=== PATIENT | male | born 1935 | race Caucasian/White ===

== ENCOUNTER 2019-11-15 20:44 | Inpatient (IN) | payer OTHER ==
[~2019-11-15] VITALS: Ht 188 cm; Wt 58.1 kg
[2019-11-15 22:41] LABS: Basophils # (auto) 0 10 ^3/uL (0-0.2); Basophils % (auto) 0.3 % (0.0-2.0); Eosinophils # (auto) 0.2 10 ^3/uL (0-0.8); Eosinophils % (auto) 1.5 % (0.0-7.0); Hematocrit 42.9 % (41.0-53.0); Hemoglobin 14.1 g/dL (13.5-17.5); Lymphocytes # (auto) 1.9 10 ^3/uL (0.4-5.4); Mean Corpuscular Hemoglobin 27.4 pg (28.0-32.0); Mean Corpuscular Hgb Conc. 32.7 g/dL (32.0-36.0); Mean Corpuscular Volume 83.7 fL (80.0-100.0); Monocytes # (auto) 0.5 10 ^3/uL (0-1.3); Monocytes % (auto) 4.7 % (0.0-12.0); Neutrophils # (auto) 8.1 10 ^3/uL (1.6-8.6); Neutrophils % (auto) 75.5 % (37.0-80.0); Platelet Count (auto) 313 10^3/uL (140-450); Red Blood Cells 5.13 10^6/uL (4.5-5.90); Red Cell Distribution Width 15.5 % (11.8-14.3); White Blood Cell 10.8 10^3/uL (4.4-10.8)
[2019-11-15 22:43] LABS: Alanine Aminotransferase 23 U/L (16-61); Albumin 3.4 g/dL (3.4-5.0); Anion Gap 6 (5-15); Aspartate Aminotransferase 18 U/L (15-37); Blood Urea Nitrogen 27 mg/dL (7-18); Carbon Dioxide 26 mmol/L (21-32); Chloride 103 mmol/L (98-107); Glucose 113 mg/dL (74-106); Magnesium 2.3 mg/dL (1.6-2.6); Potassium 3.7 mmol/L (3.5-5.1); Sodium 135 mmol/L (136-145)
[2019-11-15 22:48] LABS: Alkaline Phosphatase 109 U/L (45-117); BUN/Creatinine Ratio 18.4; Bilirubin, Total 0.3 mg/dL (0.2-1.0); GFR African American 58 mL/min; GFR Non-African American 48 mL/min
[2019-11-15 23:01] LABS: INR 0.97 (0.9-1.15); Partial Thromboplastin Time 29.1 sec (23.0-31.2)
[2019-11-16 02:30] LABS: Urine Bacteria FEW /hpf (None Seen); Urine Blood Negative /uL (Negative); Urine Hyaline Cast FEW /lpf (0 - 2); Urine Mucus FEW (None Seen); Urine Specific Gravity 1.021 (1.001-1.035); Urine WBC 122 /hpf (0 - 3); Urine WBC Clumps PRESENT /hpf (None Seen)
[2019-11-16] MEDS ORDERED: ONDANSETRON HCL 4 MG/2 ML VIAL IV ONE ×2 (02:30→08:45)
[2019-11-16] MEDS ORDERED: MORPHINE SULFATE 4 MG/ML SYR/VIAL IV ONE (02:30)
[2019-11-16 02:31] LABS: Amylase 56 U/L (25-115); Lipase 171 U/L (73-393)
[2019-11-16] MEDS ORDERED: cefTRIAXone 1GM/50ML D5W 50 ML IV ONE (07:00)
[2019-11-16] MEDS ORDERED: metroNIDAZOLE 500MG/100ML 100 ML IV ONE (07:00)
[2019-11-16] MEDS ORDERED: MORPHINE SULF INJ 2 MG/ML SYRINGE 1ML IV ONE (08:45)
[2019-11-16] MEDS: SODIUM CHLORIDE 0.9% 1,000 ML IV SCH ×2 (11:45→12:39)
[2019-11-16] MEDS ORDERED: GASTROGRAFIN 120 ML SOL ONE (12:43)
[2019-11-16 13:47] VITALS: BP 85/57
--- NOTE | 2019-11-16 15:42 | NUR ---
RECEIVED PT TO ROOM 218 A APPROX 1400. BP RUNS LOW PER REPORT FROM ER. SYSTOLIC 85. PT AWAKE ALERT ORIENTED X 4. RED CLIFF. SUPRAPUBIC CATHETER IN PLACE. COLOSTOMY IN PLACE. UNDERGOING SMALL BOWEL SERIES AT THIS TIME. CONTINUING TO MONITOR.
[2019-11-16 16:47] VITALS: BP 86/53
--- NOTE | 2019-11-16 18:09 | NUR ---
PT CONTINUES TO REFUSE NGT. PER DR LOZANO, PT INFORMED THAT WITHOUT THE NGT IT IS UNLIKELY THE OBSTRUCTION WILL RESOLVE ON ITS OWN AND THERE IS A GREATER POSSIBILITY OF COMPLICATIONS AND . PT VERBALIZED UNDERSTANDING, STATED, " I WILL NOT LET THEM PUT THAT TUBE DOWN MY NOSE".
[2019-11-16] MEDS: SENNA 8.6 MG TAB PO SCH (20:49)
[2019-11-16] MEDS: HEPARIN SODIUM (PORCINE) 5000 UNITS/ML 1ML VIAL SC SCH (20:50)
--- NOTE | 2019-11-16 22:52 | NUR ---
EXPLAINED TO PATIENT THE NEED FOR NGT TO HELP WITH HIS SMALL BOWEL OBSTRUCTION, PATIENT REFUSED NGT.
--- NOTE | 2019-11-16 23:30 | NUR ---
SPOKE TO PATIENT'S SON, KATERINE. UPDATED HIM THAT PATIENT REFUSED FOR THE NGT TO BE INSERTED MULTIPLE TIMES. KATERINE SPOKE WITH PATIENT TWICE TO CONVINCE HIM TO HAVE THE NGT INSERTED TONIGHT. PATIENT AGREED LONG HE CAN BE GIVEN PAIN MEDICINE PRIOR NGT INSERTION.
[2019-11-16] MEDS: MORPHINE SULF INJ 2 MG/ML SYRINGE 1ML IV PRN (23:41)
--- NOTE | 2019-11-16 23:58 | NUR ---
FR 12 TASH FOSS NGT INSERTED AND CONNECTED TO LOW SUCTION ORDERED. Addendum: 11/17/19 at 0001 by TRANG ORELLANA RN RN 12 NGT INSERTED TO RIGHT NARE.
[2019-11-17 00:13] VITALS: BP 95/46
[2019-11-17] MEDS: SODIUM CHLORIDE 0.9% 1,000 ML IV SCH ×3 (02:07→23:24)
[2019-11-17 05:40] VITALS: BP 114/58
--- NOTE | 2019-11-17 06:32 | NUR ---
NGT OUTPUT - 400, GREENISH COLOR
[2019-11-17 06:38] LABS: Basophils # (auto) 0 10 ^3/uL (0-0.2); Basophils % (auto) 0.3 % (0.0-2.0); Eosinophils # (auto) 0.1 10 ^3/uL (0-0.8); Eosinophils % (auto) 0.8 % (0.0-7.0); Hematocrit 38.9 % (41.0-53.0); Hemoglobin 12.8 g/dL (13.5-17.5); Lymphocytes # (auto) 2.2 10 ^3/uL (0.4-5.4); Lymphocytes % (auto) 21.6 % (10.0-50.0); Mean Corpuscular Hemoglobin 27.5 pg (28.0-32.0); Mean Corpuscular Hgb Conc. 32.9 g/dL (32.0-36.0); Mean Corpuscular Volume 83.7 fL (80.0-100.0); Monocytes # (auto) 0.8 10 ^3/uL (0-1.3); Monocytes % (auto) 7.5 % (0.0-12.0); Neutrophils # (auto) 7.1 10 ^3/uL (1.6-8.6); Neutrophils % (auto) 69.8 % (37.0-80.0); Nucleated Red Blood Cells % 0.1 %; Platelet Count (auto) 255 10^3/uL (140-450); Red Blood Cells 4.65 10^6/uL (4.5-5.90); Red Cell Distribution Width 15.1 % (11.8-14.3); White Blood Cell 10.2 10^3/uL (4.4-10.8)
[2019-11-17 06:39] LABS: BUN/Creatinine Ratio 22.4; Calcium 9.8 mg/dL (8.5-10.1); Potassium 4.5 mmol/L (3.5-5.1)
--- NOTE | 2019-11-17 07:30 | NUR ---
Opening Shift Note RECEIVED REPORT FORM NOC RN. Assumed care of patient, awake and alert. PATIENT ON OXYGEN AT 2 LPM VIA NASAL CANNULA WITH no S/S of distress/SOB or pain. BED IN LOWEST, LOCKED POSITION WITH SIDERAILS UP x2 AND CALL LIGHT WITHIN REACH. Instructed on POC and to call for assist PRN, will continue to monitor for changes Q1hr and PRN.
[2019-11-17 09:00] VITALS: BP 95/52
[2019-11-17] MEDS: SENNA 8.6 MG TAB PO SCH ×2 (10:26→21:05)
[2019-11-17] MEDS: HEPARIN SODIUM (PORCINE) 5000 UNITS/ML 1ML VIAL SC SCH ×2 (12:02→21:16)
[2019-11-17 13:00] VITALS: BP 96/58
[2019-11-17] MEDS ORDERED: METOCLOPRAMIDE HCL 5MG/ml INJ 2ml VIAL IV ONE (14:15)
[2019-11-17] MEDS: MORPHINE SULF INJ 2 MG/ML SYRINGE 1ML IV PRN (14:36)
[2019-11-17 16:51] VITALS: BP 107/61
--- NOTE | 2019-11-17 16:57 | NUR ---
NG TUBE CLAMPED PER DOCTOR'S ORDER. 200mL OUT, GREENISH COLORED FLUID.
--- NOTE | 2019-11-17 17:50 | NUR ---
UNABLE TO CONTACT ON-CALL SOCIALS SERVICES AT THIS TIME FOR HOSPICE INITIATION FOR PATIENT'S DISCHARGE.
[2019-11-17 22:00] VITALS: BP 116/59
[2019-11-18 05:00] VITALS: BP 133/65
--- NOTE | 2019-11-18 06:03 | NUR ---
PATIENT C/O NAUSEA AND ABDOMINAL PAIN, ATTACHED NGT TO LOW SUCTION AND PUT OUT 400 ML GREENISH COLOR FLUID IN 30 MIN. PATIENT FELT BETTER AFTER. EMPTIED 100ML LOOSE BROWN STOOL FROM COLOSTOMY.
[2019-11-18 07:08] LABS: Basophils # (auto) 0 10 ^3/uL (0-0.2); Basophils % (auto) 0.4 % (0.0-2.0); Eosinophils # (auto) 0.1 10 ^3/uL (0-0.8); Eosinophils % (auto) 0.7 % (0.0-7.0); Hematocrit 38.1 % (41.0-53.0); Hemoglobin 12.6 g/dL (13.5-17.5); Lymphocytes # (auto) 1.5 10 ^3/uL (0.4-5.4); Lymphocytes % (auto) 17.6 % (10.0-50.0); Mean Corpuscular Hemoglobin 27.6 pg (28.0-32.0); Mean Corpuscular Hgb Conc. 32.9 g/dL (32.0-36.0); Mean Corpuscular Volume 83.9 fL (80.0-100.0); Monocytes # (auto) 0.5 10 ^3/uL (0-1.3); Monocytes % (auto) 6.1 % (0.0-12.0); Neutrophils # (auto) 6.6 10 ^3/uL (1.6-8.6); Neutrophils % (auto) 75.2 % (37.0-80.0); Nucleated Red Blood Cells % 0.1 %; Platelet Count (auto) 254 10^3/uL (140-450); Red Blood Cells 4.54 10^6/uL (4.5-5.90); Red Cell Distribution Width 15.5 % (11.8-14.3); White Blood Cell 8.8 10^3/uL (4.4-10.8)
[2019-11-18 07:26] LABS: Calcium 9.8 mg/dL (8.5-10.1); Potassium 3.9 mmol/L (3.5-5.1)
[2019-11-18 09:19] VITALS: BP 111/58
[2019-11-18] MEDS: SENNA 8.6 MG TAB PO SCH (10:00)
[2019-11-18] MEDS: HEPARIN SODIUM (PORCINE) 5000 UNITS/ML 1ML VIAL SC SCH (10:00)
--- NOTE | 2019-11-18 10:40 | NUR ---
NG tube removal NGT removed per MD/COMMERCIAL REVIEW APPRAISER order following explanation and instruction to patient. Patient verbalized understanding prior to removal. Patient tolerated well.
--- NOTE | 2019-11-18 10:57 | NUR ---
Attempted PT eval. Pt states he uses a 4WW at home but does not need a PT evaluation because he is going home. I explained the purpose of PT eval to pt but he continued to refuse. RN aware.
[2019-11-18 13:00] VITALS: BP 117/65
[2019-11-18] MEDS: SODIUM CHLORIDE 0.9% 1,000 ML IV SCH (13:45)
--- NOTE | 2019-11-18 14:59 | NUR ---
Assessment Patient is an 84-year-old male who is confused. Assessment was completed with patient raj Narayanan. Per Oracio prior to admission patient was staying in a motel and was unable to care for himself. Per Oracio patient is unable to care for himself and will need placement. Advised Oracio there is a social service consult for hospice. Per Oracio doctor has not talk to him about different options. Informed Oracio I will inform bedside nurse in regards of the orders so doctor can explain hospice. Informed Oracio he has the right to participate in all discharge planning. Oracio verbalized understanding and agreed to discharge plan. Informed ALLISON Wong patient raj Narayanan was not informed about Hospice. Per ALLISON Wong she will contact MD. ALLISON Wong advised me MD spoke to Oracio. Placed follow up called to Oracio in regards of hospice. Offered Oracio with options for hospice and Per Oracio doctor contact [facility] and arranged everything with agency . Informed ALLISON Wong. Addendum: 11/18/19 at 1510 by OLEG BOOTHE Amended: Links added.
--- NOTE | 2019-11-18 16:51 | NUR ---
Discharge instructions given as ordered. All questions and concerns addressed. Patient verbalized understanding. IV removed with catheter intact, pressure dressing applied. Medication reconciliation form completed and copy given to patient. Report given to at [[facility]]. Patient transported by [facility] with all personal belongings. No distress noted at time of departure.
[2019-11-18 17:00] VITALS: BP 99/49
--- NOTE | 2019-11-18 17:59 | NUR ---
Discharge instructions given as ordered. All questions and concerns addressed. Patient verbalized understanding. IV removed with catheter intact, pressure dressing applied, pat catheter In place. Medication reconciliation form completed and copy given to patient. Hospice discharge Report given to Janelle at [[facility] Patient transported by [facility] with all personal belongings. No distress noted at time of departure.
== END 2019-11-18 18:04 | disposition hospice, home (50) | DRG 388 ==
LOC: ER 20:44 → EDBD 20:44 → OVERFLOW 20:45 → CENTRAL 11-16 13:40
PROVIDERS: ADMIT Internal Medicine; ATTEND Internal Medicine
DX: K56.609 Unspecified intestinal obstruction, unspecified as to partial versus complete obstruction (principal); E43 Unspecified severe protein-calorie malnutrition; Z68.1 Body mass index [BMI] 19.9 or less, adult; N18.9 Chronic kidney disease, unspecified; G30.9 Alzheimer's disease, unspecified; F02.80 Dementia in other diseases classified elsewhere, unspecified severity, without behavioral disturbance, psychotic disturbance, mood disturbance, and anxiety; Z20.828 Contact with and (suspected) exposure to other viral communicable diseases; J44.9 Chronic obstructive pulmonary disease, unspecified; Z90.49 Acquired absence of other specified parts of digestive tract; Z93.3 Colostomy status
CPT/HCPCS: 36415; 71045; 74018; 74176; 74250; 80048; 80053; 81001; 82150; 83605; 83690; 83735; 83880; 84484; 85025; 85610; 85730; 87040; 87426; 96365; 96368; 96375; 96376; G0378; J0696; J2405; J3490